=== PATIENT | male | born 1965 | race Caucasian/White ===

== ENCOUNTER → 2016-05-21 | Outpatient (CLI) | payer SELFPAY ==
[2016-05-21 09:16] LABS: CHLORIDE,CL 108 mmol/L (98-110); SODIUM,NA 141 mmol/L (136-146)
== END ==
LOC: MW.CHFP 08:30
PROVIDERS: ATTEND Student in an Organized Health Care Education/Training Program
DX: I10 Essential (primary) hypertension (principal); E53.8 Deficiency of other specified B group vitamins
CPT/HCPCS: 36415; 80053; 80061; 82607

== ENCOUNTER 2016-07-22 11:53 | Day surgery (SDC) | payer BC ==
[~2016-07-22 11:53] MED LIST: Lactated Ringers 1,000 ML IV SCH; Midazolam 1 MG/ML 2 ML SDV ONE; Propofol 200 MG/20 ML SDV ONE; fentaNYL 100 MCG/2 ML SDV ONE
--- NOTE | 2016-07-22 12:29 | PCM.PREANE ---
Preanesthetic Assessment - Anesthesia/Transfusion/Family Hx Anesthesia History: Prior Anesthesia Without Reaction Family History of Anesthesia Reaction: No Transfusion History: No Prior Transfusion(s) - Review of Systems General: No Symptoms Pulmonary: No Symptoms Cardiovascular: No Symptoms Gastrointestinal: No symptoms Neurological: No Symptoms Other: Reports: None - Physical Assessment NPO Status Date: 07/21/16 O2 Sat by Pulse Oximetry: 93 Respiratory Rate: 16 Vital Signs: Last Vital Signs Temp 36.4 C 07/22/16 12:26 Pulse 73 07/22/16 12:26 Resp 16 07/22/16 12:26 BP 139/79 07/22/16 12:26 Pulse Ox 93 L 07/22/16 12:26 Height: 1.93 m Weight: 174.179 kg ASA Class: 2 Mental Status: Alert & Oriented x3 Dentition: Reports: Normal Dentition ROM/Head Extension: Full Lungs: Clear to auscultation, Normal respiratory effort Cardiovascular: Regular Rate, Regular Rhythm - Allergies Allergies/Adverse Reactions: Allergies Allergy/AdvReac Type Severity Reaction Status Date / Time naproxen [From Aleve] Allergy Arrhythmias Verified 07/19/16 11:58 - Blood Blood Available: No - Anesthesia Plan Pre-Op Medication Ordered: None - Acknowledgements Anesthesia Type Planned: MAC Pt an Appropriate Candidate for the Planned Anesthesia: Yes Alternatives and Risks of Anesthesia Discussed w Pt/Guardian: Yes Pt/Guardian Understands and Agrees with Anesthesia Plan: Yes PreAnesthesia Questionnaire HEENT History: Reports: Other (See Below) Other HEENT History: wears glasses Cardiovascular History: Reports: Hypertension Respiratory History: Reports: Other (See Below) Other Respiratory History: states sleep apnea in the past, has lost weight and no longer needs CPAP Psychiatric History: Reports: Anxiety, Depression Endocrine/Metabolic History: Reports: Obesity/BMI 30+ Hematologic History: Reports: B12 Deficiency - Past Surgical History Head Surgeries/Procedures: Reports: None GI Surgical History: Reports: Bariatric Procedure, Hernia Repair/Other Other GI Surgeries/Procedures: hernia repair x2 - SUBSTANCE USE Smoking Status *Q: Never Smoker Recreational Drug Use History: No - HOME MEDS Home Medications: Home Meds FLUoxetine HCl [Fluoxetine HCl] 20 mg PO DAILY 12/23/15 [History] Hydrochlorothiazide [Hydrochlorothiazide] 25 mg PO DAILY 12/23/15 [History] Acetaminophen/Diphenhydramine [Tylenol Pm Ex-Strength Caplet] 2 tab PO BEDTIME 07/19/16 [History] Cyanocobalamin (Vitamin B-12) [Cyanocobalamin Injection] 1 injection IM ASDIRECTED 07/19/16 [History] Cyclobenzaprine HCl 10 mg PO TID PRN 07/19/16 [History] Magnesium 250 mg PO DAILY 07/19/16 [History] Multivits-Minerals/FA/Lycopene [One Daily Men's Health Tablet] 1 tab PO DAILY [History] - CURRENT (IN HOUSE) MEDS Current Meds: Current Medications Lactated Ringer's (Ringers, Lactated) 1,000 mls @ 125 mls/hr IV ASDIRECTED BALWINDER Last Admin: 07/22/16 12:24 Dose: 125 mls/hr Discontinued Medications Fentanyl (Sublimaze) Confirm Administered Dose 100 mcg .ROUTE .STK-MED ONE Stop: 07/22/16 07:13 Midazolam HCl (Versed 1 Mg/Ml) Confirm Administered Dose 2 mg .ROUTE .STK-MED ONE Stop: 07/22/16 07:13 Propofol (Diprivan 20 Ml) Confirm Administered Dose 400 mg .ROUTE .STK-MED ONE Stop: 07/22/16 07:13
--- NOTE | 2016-07-22 14:03 | PCM.OPNOTE ---
- General Post-Op/Procedure Note Date of Surgery/Procedure: 07/22/16 Operative Procedure(s): colonoscopy with unacceptable bowel prep Findings: see dictation [id number] Pre Op Diagnosis: screening Post-Op Diagnosis: anal tag Anesthesia Technique: Moderate sedation Primary Surgeon: Denny Win Complications: None Condition: Good
--- NOTE | 2016-07-22 14:37 | PCM.POSTAN ---
POST ANESTHESIA ASSESSMENT - MENTAL STATUS Mental Status: alert, oriented - RESPIRATORY Respiratory Status: respiratory rate WNL, airway patent, O2 saturation stable - CARDIOVASCULAR CV Status: pulse rate WNL, blood pressure stable - GASTROINTESTINAL GI Status: no symptoms - POST OP HYDRATION Hydration Status: adequate & stable
--- NOTE | 2016-07-22 15:25 | PCM48HPAN ---
Post Anesthesia Note - EVALUATION WITHIN 48HRS OF ANESTHETIC Vital Signs in Normal Range: Yes Patient Participated in Evaluation: Yes Respiratory Function Stable: Yes Airway Patent: Yes Cardiovascular Function Stable: Yes Hydration Status Stable: Yes Pain Control Satisfactory: Yes Nausea and Vomiting Control Satisfactory: Yes Mental Status Recovered: Yes
[2016-07-22 15:44] VITALS: BP 116/67
--- NOTE | 2016-07-27 06:23 | OR ---
SURGEON: Denny Win MD DATE OF PROCEDURE: 07/22/2016 PREOPERATIVE DIAGNOSIS: Screening colonoscopy. POSTOPERATIVE DIAGNOSIS: Anal tags. PROCEDURE PERFORMED: Colonoscopy. FINDINGS: 1. The patient is easily sedated with BURLESQUE DANCER and Diprivan. The patient was soundly snoring. 2. The patient's bowel prep was not acceptable. The patient's bowel prep is full of white powder and opaque powder and coating over 90% of the mucosa of the colon, so even with constant irrigation, it is just not able to examine the mucosa and this is a more than compromised study. It is not acceptable bowel prep. The patient would benefit from repeat colonoscopy in 12 to 18 months. 3. From the limited study and compromised study:. a. The patient is morbidly obese and cecum can only be seen at a distance and mucosa examined upon scope pulling out with constant irrigation, but with semi-formed stool and stool ball,it is just not possible, and from the limited study there was no diverticulosis or mass growth, blood ulceration, but again I repeat because of unacceptable bowel preparation would benefit from repeat colonoscopy in 12 to 18 months. The patient does have anal tags about a size of 1 cm and internal and external hemorrhoids. PROCEDURE IN DETAIL: The patient was taken to the endoscopy room. A time out was called, patient identified, and procedure identified. Diprivan was then administrated. Patient went from awake to sleep, hearing doctor talking or door closing is normal. Perineum inspection and digital examination were then performed. A well- lubricated colonoscope was gently inserted through the rectum, advanced past the rectosigmoid junction, the descending colon, splenic flexure, transverse colon, hepatic flexure, ascending colon, arrived to the cecum. Cecum was identified as dictated in the finding. Then the scope was carefully withdrawn while attention was paid to the mucosal surface for any abnormality. Air will be sucked out during the scope withdrawal. At the rectum, retroflexed to examine any rectal diseases, fistula or hemorrhoids. Patient tolerated procedure well. There were no intraoperative complications, and Dr. Win was present throughout the whole procedure. As always, thank you for the kind referral. THEODORE / ALBERTO /[id number] MARTHA
== END 2016-07-22 15:15 | disposition home or self-care (01) ==
LOC: MW.SDS 11:53
PROVIDERS: ATTEND Surgery
DX: K64.4 Residual hemorrhoidal skin tags (principal)
CPT/HCPCS: 45380; J2250; J3010; J7120; J2704

== ENCOUNTER 2019-08-24 10:56 | Emergency (ER) | payer BC ==
[2019-08-24 11:06] VITALS: BP 138/82
--- NOTE | 2019-08-24 11:06 | EDM.PDOC ---
ED HPI GENERAL MEDICAL PROBLEM - General Stated Complaint: RAPID RESPONSE Time Seen by Provider: 08/24/19 10:59 - History of Present Illness INITIAL COMMENTS - FREE TEXT/NARRATIVE: History of present illness: [] Patient was found just outside the hospital on [address] where he stumbled off the curb outside of a door where he exited the premises after getting an outpatient lab draw for unrelated medical issues. Patient states he fell and struck his left elbow and his left cheek no loss of consciousness he is less than 65 years old and he is not on blood thinners. 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 He makes it better or worse Review of systems: As per history of present illness and below otherwise all systems reviewed and negative. Past medical history: As per history of present illness and as reviewed below otherwise noncontributory. Surgical history: As per history of present illness and as reviewed below otherwise noncontributory. Social history: No reported history of drug or alcohol abuse. Family history: As per history of present illness and as reviewed below otherwise noncontributory. Physical exam: HEENT: Atraumatic, normocephalic, pupils reactive, negative for conjunctival pallor or scleral icterus, mucous membranes moist, throat clear, neck supple, nontender, trachea midline. Lungs: Clear to auscultation, breath sounds equal bilaterally, chest nontender. Heart: S1S2, regular, negative for clicks, rubs, or JVD. Abdomen: Soft, nondistended, nontender. Negative for masses or hepatosplenomegaly. Negative for costovertebral tenderness. Pelvis: Stable nontender. Genitourinary: Deferred. Rectal: Deferred. Extremities: Atraumatic, negative for cords or calf pain. Neurovascular unremarkable. There is tenderness to the left elbow good distal pulse motor and sensation no deformity Neuro: Awake, alert, oriented. Cranial nerves II through XII unremarkable. Cerebellum unremarkable. Motor and sensory unremarkable throughout. Exam nonfocal. Diagnostics: [] Therapeutics: [] Impression: Patient will undergo x-ray evaluation of the left elbow be discharged home. [] Plan: [] Definitive disposition and diagnosis as appropriate pending reevaluation and review of above. left arm Pain Score (Numeric/FACES): 8 - Related Data Allergies Allergy/AdvReac Type Severity Reaction Status Date / Time naproxen [From Aleve] Allergy Arrhythmias Verified 08/24/19 11:06 Home Meds: Home Meds FLUoxetine HCl [Fluoxetine HCl] 20 mg PO DAILY 12/23/15 [History] Hydrochlorothiazide 25 mg PO DAILY 12/23/15 [History] Acetaminophen/Diphenhydramine [Tylenol Pm Ex-Strength Caplet] 2 tab PO BEDTIME 07/19/16 [History] Cyanocobalamin (Vitamin B-12) [Cyanocobalamin Injection] 1 injection IM ASDIRECTED 07/19/16 [History] Cyclobenzaprine HCl 10 mg PO TID PRN 07/19/16 [History] Magnesium 250 mg PO DAILY 07/19/16 [History] Multivit-Minerals/FA/Lycopene [One Daily Men's Health Tablet] 1 tab PO DAILY 07/19/16 [History] Ibuprofen [Motrin] 800 mg PO TID PRN #30 tab 08/24/19 [Rx] Past Medical History HEENT History: Reports: Other (See Below) Other HEENT History: wears glasses Cardiovascular History: Reports: Hypertension Respiratory History: Reports: Other (See Below) Other Respiratory History: states sleep apnea in the past, has lost weight and no longer needs CPAP Psychiatric History: Reports: Anxiety, Depression Endocrine/Metabolic History: Reports: Obesity/BMI 30+ Hematologic History: Reports: B12 Deficiency - Past Surgical History Head Surgeries/Procedures: Reports: None HEENT Surgical History: Reports: Tonsillectomy GI Surgical History: Reports: Bariatric Procedure, Cholecystectomy, Hernia Repair/Other Other GI Surgeries/Procedures: hernia repair x2 Social & Family History - Family History Family Medical History: Noncontributory - Caffeine Use Caffeine Use: Reports: None ED ROS GENERAL - Review of Systems Review Of Systems: See Below ED EXAM, GENERAL - Physical Exam Exam: See Below Course - Vital Signs Text/Narrative:: 3 view left elbow read interpreted by me no acute fractures or dislocations are appreciated. The patient will be discharged home and he is to follow-up with his primary care doctor Last Recorded V/S: Last Vital Signs Temp 36.5 C 08/24/19 11:01 Pulse 84 08/24/19 12:15 Resp 20 08/24/19 11:01 BP 138/82 08/24/19 11:01 Pulse Ox 96 08/24/19 12:15 - Orders/Labs/Meds Orders: Active Orders 24 hr Category Date Time Status Splinting [RC] ASDIRECTED Care 08/24/19 11:28 Active DME for Discharge [COMM] Stat Oth 08/24/19 11:54 Ordered Meds: Medications Discontinued Medications Generic Name Dose Route Start Last Admin Trade Name Freq PRN Reason Stop Dose Admin Ibuprofen 800 mg 08/24/19 11:47 08/24/19 11:57 Motrin PO 08/24/19 11:48 800 mg ONETIME ONE Administration Departure - Departure Time of Disposition: 13:00 Disposition: Home, Self-Care 01 Condition: Good Clinical Impression: Elbow contusion - Discharge Information *PRESCRIPTION DRUG MONITORING PROGRAM REVIEWED*: Not Applicable *COPY OF PRESCRIPTION DRUG MONITORING REPORT IN PATIENT ANGELI: Not Applicable Prescriptions: Ibuprofen [Motrin] 800 mg PO TID PRN #30 tab PRN Reason: Pain (Moderate 4-6) Instructions: Elbow Contusion, Fall Prevention in the Home, Adult Referrals: PCP,None [Primary Care Provider] - Forms: ED Department Discharge Additional Instructions: The following information is given to patients seen in the emergency department who are being discharged to home. This information is to outline your options for follow-up care. We provide all patients seen in our emergency department with a follow-up referral. The need for follow-up, as well as the timing and circumstances, are variable depending upon the specifics of your emergency department visit. If you don't have a primary care physician on staff, we will provide you with a referral. We always advise you to contact your personal physician following an emergency department visit to inform them of the circumstance of the visit and for follow-up with them and/or the need for any referrals to a consulting specialist. The emergency department will also refer you to a specialist when appropriate. This referral assures that you have the opportunity for follow-up care with a specialist. All of these measure are taken in an effort to provide you with optimal care, which includes your follow-up. Under all circumstances we always encourage you to contact your private physician who remains a resource for coordinating your care. When calling for follow-up care, please make the office aware that this follow-up is from your recent emergency room visit. If for any reason you are refused follow-up, please contact the [facility] Emergency Department at and asked to speak to the emergency department charge nurse. [facility] [address], [address] [place] [address] - My Orders Last 24 Hours: My Active Orders 08/24/19 11:28 Splinting [RC] ASDIRECTED 08/24/19 11:54 DME for Discharge [COMM] Stat - Assessment/Plan Last 24 Hours: My Active Orders 08/24/19 11:28 Splinting [RC] ASDIRECTED 08/24/19 11:54 DME for Discharge [COMM] Stat
--- NOTE | 2019-08-24 11:34 | CR ---
Left elbow: 3 views of the left elbow were obtained. Comparison: No prior elbow study. Small spur is noted off the olecranon process. Small calcification is noted off the coronoid process appears old. No acute fracture, dislocation or other bony abnormality is seen. Impression: 1. Findings as noted above. 2. Nothing acute is appreciated on left elbow study. Diagnostic code #2 This report was dictated in MDT
--- NOTE | 2019-08-24 11:35 | CR ---
Left forearm: 2 views of the left forearm were obtained. Comparison: No previous study. No fracture or other bony abnormality is appreciated. Impression: 1. Nothing acute is seen on 2 view forearm study. Diagnostic code #1 This report was dictated in MDT
[2019-08-24] MEDS ORDERED: Ibuprofen 800 MG Tab PO ONE (11:47)
[2019-08-24 12:22] VITALS: PULSE 84
== END 2019-08-24 12:21 | disposition home or self-care (01) ==
LOC: MW.ED 10:56
DX: S50.02XA Contusion of left elbow, initial encounter (principal); I10 Essential (primary) hypertension; F41.9 Anxiety disorder, unspecified; F32.9 Major depressive disorder, single episode, unspecified; E66.9 Obesity, unspecified; Z68.42 Body mass index [BMI] 45.0-49.9, adult; Z79.899 Other long term (current) drug therapy; W22.8XXA Striking against or struck by other objects, initial encounter; Y92.410 Unspecified street and highway as the place of occurrence of the external cause
CPT/HCPCS: 29105; 73080; 73090; 99283; A9270; 99282